=== PATIENT | male | born 1955 | race Caucasian/White ===

== ENCOUNTER → 2019-06-08 | Outpatient (CLI) | payer MEDICARE, OTHER | END | disposition home or self-care (01) | LOC: CFH 12:44 | PROVIDERS: ATTEND Internal Medicine Cardiovascular Disease | CPT/HCPCS: 93306 ==

== ENCOUNTER 2020-01-14 13:29 | Observation (INO) | payer MEDICARE, OTHER ==
[~2020-01-14] VITALS: Ht 185.4 cm; Wt 109.0 kg
--- NOTE | 2020-01-14 13:46 | NUR ---
PT C/O FAST HR NOTICED YESTERDAY MORNING, "PROBABLY STARTED OVERNIGHT". PT DENIES CP OR ANY OTHER SYMPTOMS. PT CAME IN FOR FAST HR. PT CONNECTED TO MONITORING. CALL LIGHT IN REACH. TECH AT BEDSIDE FOR IV INSERT. MD AT BEDSIDE FOR ASSESSMENT. AT BEDSIDE.
[2020-01-14] MEDS ORDERED: DILTIAZEM 125 MG in SODIUM CHLORIDE 0.9% 100 ML IV SCH (13:56)
[2020-01-14] MEDS ORDERED: SODIUM CHLORIDE FLUSH 10ML SYR IVF ONE (14:00)
[2020-01-14] MEDS ORDERED: DILTIAZEM 5 MG/ML, 5ML IV ONE (14:00)
[2020-01-14] MEDS ORDERED: DILTIAZEM 5 MG/ML, 5ML ONE (14:00)
[2020-01-14 14:19] LABS: BASOPHILS # (AUTO) 0.02 x10^3/uL (0-0.1); BASOPHILS % (AUTO) 0 % (0-1); EOSINOPHILS # (AUTO) 0.15 x10^3/uL (0-0.4); EOSINOPHILS % (AUTO) 2 % (1-7); LYMPHOCYTES # (AUTO) 2.07 x10^3/uL (1-3.4); LYMPHOCYTES % (AUTO) 30 % (22-44); MD NO; MEAN CORPUSCULAR HEMOGLOBIN 32.3 pg (27.5-34.5); MEAN CORPUSCULAR HGB CONC 33.5 g/dL (33.2-36.2); MEAN PLATELET VOLUME 9.3 fL (7.4-10.4); MONOCYTES # (AUTO) 0.81 x10^3/uL (0.2-0.8); MONOCYTES % (AUTO) 12 % (2-9); NEUTROPHILS # (AUTO) 3.78 x10^3/uL (1.8-6.8); NEUTROPHILS % (AUTO) 55 % (42-75); PLATELET COUNT 200 x10^3/uL (130-400); RED BLOOD COUNT 5.22 x10^6/uL (4.38-5.82); RED CELL DISTRIBUTION WIDTH 13.6 % (9.4-14.8)
[2020-01-14 14:34] LABS: ALANINE AMINOTRANSFERASE 34 U/L (12-78); ALBUMIN 4.2 g/dL (3.4-5.0); ANION GAP 10 mmol/L (5-15); CALCIUM 9.5 mg/dL (8.5-10.1); CHLORIDE 106 mmol/L (98-107); CREATININE 0.84 mg/dL (0.7-1.3)
[2020-01-14 14:39] LABS: ALKALINE PHOSPHATASE 61 U/L (45-117); BILIRUBIN,TOTAL 1.1 mg/dL (0.2-1.0); TOTAL PROTEIN 7.6 g/dL (6.4-8.2)
[2020-01-14 14:42] LABS: TROPONIN I 0.201 ng/mL (0.000-0.045)
--- NOTE | 2020-01-14 14:51 | NUR ---
PT HR AROUND 90 BPM. RECEIVED CRITICAL LAB: TROP 0.201. MD NOTIFIED AND NEW ORDER FOR REPEAT EKG. HOLD DILTIZEM DRIP UNTIL AFTER EKG. TECH AT BEDSIDE FOR EKG.
--- NOTE | 2020-01-14 15:32 | NUR ---
PT RESTING COMFORTABLY ON GURNEY. NADN. HR IN 70S. MD AT BEDSIDE TO UPDATE PT ON POC.
[2020-01-14] MEDS ORDERED: PROPOFOL 10 MG/ML, 20ML ONE (15:55)
[2020-01-14] MEDS ORDERED: POTASSIUM CHLORIDE 20 MEQ in LACTATED RINGERS 1,000 ML IV SCH (16:05)
[2020-01-14] MEDS ORDERED: ACETAMINOPHEN 325 MG TABLET PO PRN (16:30)
[2020-01-14] MEDS ORDERED: METOCLOPRAMIDE 5 MG/ML, 2ML IVPush PRN (16:30)
[2020-01-14] MEDS ORDERED: TRAZODONE 50MG TABLET PO PRN (16:30)
[2020-01-14] MEDS ORDERED: DILTIAZEM 5 MG/ML, 5ML IVPush PRN (16:30)
[2020-01-14] MEDS ORDERED: SODIUM CHLORIDE FLUSH 10ML SYR IVF PRN (16:30)
[2020-01-14] MEDS ORDERED: PROPOFOL 10 MG/ML, 20ML IVPush ONE (16:30)
--- NOTE | 2020-01-14 16:45 | NUR ---
CONSENT SIGNED FOR [employer]SCIENCE SEDATION [employer]TEE WITH [employer]. CARDIOLOGY, US, EDMD, 2 TECH, AND THIS RN AT BEDSIDE. PT GIVEN PROPOFOL 100MG IV TOTAL. CARDIOLOGY GAVE ORDER FOR SYNC SHOCK 200J. EDMD SHOCKED PT. PT HR CHANGED TO NSR IN 60s. PT TOLLERATED WELL AND AWAKE, TALKING IN FULL SENTENCES. A&O4. BACK AT BEDSIDE. PT TO BE ADMITTED. SEE SEDATION PAPERWORK FOR VITALS.
--- NOTE | 2020-01-14 17:04 | NUR ---
REPORT GIVEN TO AUSTIN GUILLERMO.
[2020-01-14] MEDS ORDERED: RIVAROXABAN 20 MG TABLET PO SCH (17:40)
[2020-01-14 17:43] VITALS: BP 128/90
[2020-01-14] MEDS ORDERED: METO25TA35 PO (18:37)
[2020-01-14] MEDS ORDERED: HYDR12.575 PO (18:37)
[2020-01-14] MEDS ORDERED: IRBE300T40 PO (18:37)
[2020-01-14 19:16] VITALS: BP 129/86
[2020-01-14] MEDS: METOPROLOL TARTRATE 25 MG TAB PO SCH (20:18)
[2020-01-14] MEDS ORDERED: AMLODIPINE 10 MG TAB PO SCH (21:00)
[2020-01-14] MEDS ORDERED: IRBESARTAN 300 MG TABLET PO SCH (21:00)
[2020-01-14 21:44] LABS: CHOL/HDL RATIO 3.3; LDL/HDL RATIO 1.9 (0.5-3.0)
[2020-01-14 22:34] LABS: TROPONIN I 0.165 ng/mL (0.000-0.045)
[2020-01-15 02:00] VITALS: BP 127/84
[2020-01-15] MEDS ORDERED: AMLO1POW3 PO (02:57)
[2020-01-15] MEDS ORDERED: THYR90TA12 PO (03:02)
[2020-01-15 05:54] LABS: ANION GAP 6 mmol/L (5-15); CALCIUM 8.4 mg/dL (8.5-10.1); CHLORIDE 110 mmol/L (98-107)
[2020-01-15 06:02] LABS: TROPONIN I 0.155 ng/mL (0.000-0.045)
[2020-01-15] MEDS: METOPROLOL TARTRATE 25 MG TAB PO SCH (06:06)
[2020-01-15 07:02] VITALS: BP 118/78
[2020-01-15] MEDS ORDERED: POTASSIUM CHLORIDE 20 MEQ TAB.ER.PRT PO SCH (08:00)
[2020-01-15] MEDS ORDERED: REGADENOSON 0.4 MG/5 ML SYRINGE ONE (08:39)
[2020-01-15] MEDS ORDERED: HYDROCHLOROTHIAZIDE 12.5 MG CAPSULE PO SCH (09:00)
[2020-01-15] MEDS ORDERED: METO-93 PO ×3 (10:51→10:52)
[2020-01-15] MEDS ORDERED: RIVA20TA PO (10:51)
[2020-01-15] MEDS ORDERED: METOPROLOL SUCCINATE 50 MG TAB.ER.24H PO SCH (11:00)
== END 2020-01-15 12:40 | disposition home or self-care (01) ==
LOC: ED 17:32 → INTOOBSV 17:39 → 5SO 17:39
PROVIDERS: ADMIT Internal Medicine; ATTEND Internal Medicine
DX: I48.92 Unspecified atrial flutter (principal); I48.0 Paroxysmal atrial fibrillation; I10 Essential (primary) hypertension; E03.9 Hypothyroidism, unspecified; R60.9 Edema, unspecified; D68.69 Other thrombophilia; Z79.899 Other long term (current) drug therapy; Z79.01 Long term (current) use of anticoagulants
CPT/HCPCS: 36415; 71046; 80048; 80053; 80061; 83735; 83880; 84443; 84484; 85025; 93005; 93312; 93321; 93325; 96374; 99285; G0378; J2785

== ENCOUNTER → 2020-02-18 | Outpatient (CLI) | payer MEDICARE, OTHER ==
[~2020-02-18] MED LIST: AMLO1POW3 PO; HYDR12.575 PO; IRBE300T40 PO; METO-93 PO; METO25TA35 PO; RIVA20TA PO; THYR90TA12 PO
== END | disposition home or self-care (01) ==
LOC: CFH 11:59
PROVIDERS: ATTEND Internal Medicine Cardiovascular Disease
DX: I25.9 Chronic ischemic heart disease, unspecified (principal); I10 Essential (primary) hypertension; I48.0 Paroxysmal atrial fibrillation
CPT/HCPCS: 78452; 93017; A9502

== ENCOUNTER → 2020-10-16 | Outpatient (CLI) | payer MEDICARE, OTHER | END | disposition home or self-care (01) | LOC: CFH 12:45 | PROVIDERS: ATTEND Internal Medicine Cardiovascular Disease | DX: I08.3 Combined rheumatic disorders of mitral, aortic and tricuspid valves (principal); E78.5 Hyperlipidemia, unspecified; I10 Essential (primary) hypertension; I48.91 Unspecified atrial fibrillation | CPT/HCPCS: C8929; Q9957 ==

== ENCOUNTER 2020-11-23 05:57 | Day surgery (SDC) | payer MEDICARE, OTHER ==
[~2020-11-23] VITALS: Ht 182.9 cm; Wt 104.5 kg
[2020-11-23] MEDS ORDERED: QUER1POW PO (06:37)
[2020-11-23] MEDS ORDERED: MELA1TAB46 PO (06:37)
[2020-11-23] MEDS ORDERED: TIMO1DRO6 EACHEYE (06:37)
[2020-11-23] MEDS ORDERED: MULT-833 PO (06:37)
[2020-11-23] MEDS ORDERED: DRON400T6 PO (06:37)
[2020-11-23] MEDS ORDERED: UBID100C24 PO (06:37)
[2020-11-23] MEDS ORDERED: MULT1TAB58 PO (06:37)
[2020-11-23] MEDS ORDERED: ATOR20TA37 PO (06:37)
[2020-11-23] MEDS ORDERED: POTA99TA24 PO (06:37)
[2020-11-23] MEDS ORDERED: METO25TA91 PO (06:37)
[2020-11-23] MEDS ORDERED: VITA1TAB38 PO (06:37)
[2020-11-23] MEDS ORDERED: CHLO25TA PO (06:37)
[2020-11-23 06:39] VITALS: BP 105/77
[2020-11-23 06:52] LABS: ANION GAP 8 mmol/L (5-15); CALCIUM 9.1 mg/dL (8.5-10.1); CHLORIDE 103 mmol/L (98-107); CREATININE 0.82 mg/dL (0.7-1.3)
[2020-11-23] MEDS ORDERED: PROPOFOL 10 MG/ML, 20ML ONE (07:31)
== END 2020-11-23 08:44 | disposition home or self-care (01) ==
LOC: CACL 05:57
PROVIDERS: ATTEND Internal Medicine Cardiovascular Disease
DX: I48.0 Paroxysmal atrial fibrillation (principal); I25.10 Atherosclerotic heart disease of native coronary artery without angina pectoris; I10 Essential (primary) hypertension; I71.2 Thoracic aortic aneurysm, without rupture; E03.9 Hypothyroidism, unspecified; Z79.01 Long term (current) use of anticoagulants; Z79.890 Hormone replacement therapy; Z79.899 Other long term (current) drug therapy; Z82.49 Family history of ischemic heart disease and other diseases of the circulatory system
CPT/HCPCS: 36415; 80048; 92960; 93005; J2704